=== PATIENT | female | born 1970 | race African-American/Black ===

== ENCOUNTER 2022-07-14 08:50 | Emergency (ER) | payer MEDICAID ==
[~2022-07-14] VITALS: Ht 167.6 cm; Wt 115.0 kg
[2022-07-14 09:06] VITALS: BP 188/106
[2022-07-14] MEDS ORDERED: ALBUTEROL (0.5%) 2.5MG/0.5ML NEB HHN ONE (10:15)
[2022-07-14] MEDS ORDERED: IPRATROPIUM BROMIDE (0.02%) 0.5MG/2.5ML NEB HHN ONE (10:15)
[2022-07-14] MEDS ORDERED: ALBUTEROL (0.5%) 2.5MG/0.5ML NEB HHN NR (14:00)
[2022-07-14] MEDS ORDERED: IPRATROPIUM BROMIDE (0.02%) 0.5MG/2.5ML NEB HHN NR (14:15)
[2022-07-14 14:32] LABS: BASOPHILS % 0.7 % (0.0-2.0); EOSINOPHILS % 0.9 % (0.0-5.0); HEMATOCRIT. 36.5 % (36.0-48.0); HEMOGLOBIN. 11.2 g/dL (12.0-16.0); MEAN CORPUSCULAR HEMOGLOBIN 17.8 pg (28.0-32.0); MEAN CORPUSCULAR VOLUME 58.1 fL (81.0-99.0); MONOCYTES % 8.6 % (2.0-8.0); NEUTROPHILS % 74.8 % (40.0-76.0); RED BLOOD CELL COUNT 6.28 mill/uL (4.2-5.4); RED CELL DISTRIBUTION WIDTH 22.4 % (11.6-14.6)
[2022-07-14 14:36] LABS: CHLORIDE 102 mEq/L (98-107)
[2022-07-14] MEDS ORDERED: DOXY-326 MT (14:38)
[2022-07-14] MEDS ORDERED: ALBU6.7H15 INH (14:38)
[2022-07-14] MEDS ORDERED: GUAI600T26 MT (14:38)
[2022-07-14] MEDS ORDERED: DOXYCYCLINE HYCLATE 100MG CAPSULE PO ONE (14:45)
[2022-07-14 16:08] LABS: MEAN PLATELET VOLUME 8.7 fl (7.4-10.4); PLATELET ESTIMATE NORMAL
[2022-07-14 16:09] LABS: PLATELET 254 x1000/uL (130-400)
== END 2022-07-14 15:12 | disposition home or self-care (01) ==
LOC: ER 08:50
DX: J18.9 Pneumonia, unspecified organism (principal); R06.2 Wheezing; I10 Essential (primary) hypertension; Z20.822 Contact with and (suspected) exposure to COVID-19
CPT/HCPCS: 36415; 71045; 80048; 85025; 87426; 94640; 99284; C9803; Z7610